=== PATIENT | male | born 1955 | race Caucasian/White ===

== ENCOUNTER 2022-02-21 06:04 | Day surgery (SDC) | payer BC ==
[2022-02-16 12:33] LABS: Absolute Lymphocytes (CBC) 2.4 K/uL (0.7-4.9); Hematocrit 48.6 % (39.6-49.0); Lymphocytes % 32.5 % (15.3-44.8); MPV 9.6 fL (7.6-11.3); RBC Red Blood Cell Count 5.31 M/uL (4.33-5.43)
--- NOTE | 2022-02-16 12:39 | RAD REPORT ---
EXAM DESCRIPTION: RAD - Chest Pa And Lat (2 Views) - 02/16/2022 12:22 pm CLINICAL HISTORY: preop COMPARISON: No comparisons FINDINGS: Lines: None. Lungs: No evidence of edema or pneumonia. Pleural: No significant pleural effusions or pneumothorax. Cardiac: The heart size is within normal limits. Bones: No acute fractures. Other: IMPRESSION: No acute cardiopulmonary disease.
--- NOTE | 2022-02-19 11:58 | EKG ---
Test Date: 2022-02-16 Test Time: 12:10:59 Bronze Plater: HENNA MEASUREMENT RESULTS: Intervals: Rate: 55 OR: 148 QRSD: 94 QT: 440 QTc: 420 [place]: P: 72 OR: 148 QRS: 31 T: 39 INTERPRETIVE STATEMENTS: Sinus bradycardia Otherwise normal ECG No previous ECG available for comparison Electronically Signed On 02-19-22 11:52:11 CDT by Adriel Ellis
[2022-02-21] MEDS ORDERED: Ringers Lactate 1,000 ML IV ONE ×2 (06:24→10:11)
[2022-02-21] MEDS ORDERED: CEFAZOLIN 2 GM IN 0.9% NACL 2 GM/100 ML BAG ONE (06:24)
[2022-02-21] MEDS ORDERED: dexAMETHasone 10 MG/ML VIAL ONE ×2 (06:33→07:22)
[2022-02-21] MEDS ORDERED: MIDAZOLAM HCL 2 MG/2 ML INJ ONE (06:33)
[2022-02-21] MEDS ORDERED: LIDOCAINE 1% MPF 5 ML VIAL ONE (06:33)
[2022-02-21] MEDS ORDERED: FENTANYL CITR 100 MCG/2 ML ONE (06:33)
[2022-02-21] MEDS ORDERED: ROPLVACAINE HCL 40 ML ONE (06:34)
[2022-02-21] MEDS ORDERED: SODIUM BICARB 50 MEQ/50ML VIAL ONE (06:34)
[2022-02-21] MEDS ORDERED: EPINEPHRINE/PF 1 MG/ML AMP ONE ×2 (06:34→07:15)
[2022-02-21] MEDS ORDERED: propofoL 200 MG/20 ML VIAL IV ONE (07:22)
[2022-02-21] MEDS ORDERED: KETOROLAC 30 MG/ML INJ ONE (07:22)
[2022-02-21] MEDS ORDERED: ONDANSETRON 4 MG/2 ML VIAL ONE (07:23)
[2022-02-21] MEDS ORDERED: LIDOCAINE 2% MPF 5 ML VIAL ONE (07:23)
[2022-02-21] MEDS ORDERED: ROCURONIUM 50 MG/5 ML VIAL IV ONE (07:34)
[2022-02-21] MEDS ORDERED: Phenylephrine HCl 10 MG/ML 1 ML VIAL ONE (09:27)
[2022-02-21] MEDS ORDERED: NS 0.9% VIAL 10 ML ONE (09:27)
--- NOTE | 2022-02-21 10:24 | P.BOP ---
Preoperative diagnosis: left rotator cuff tear, biceps tendinitis, impingement syndrome Postoperative diagnosis: same, SLAP tear Primary procedure: left shoulder arthroscopic rotator cuff repair Secondary procedure: left shoulder arthroscopic biceps tenotomy with SLAP debridement Other procedure(s): left shoulder arthroscopic subacromial decompression Personal Service Representative: NONE,NONE Estimated blood loss: per anesthesia record Specimen: none Findings: see dictation Anesthesia: General Complications: None Implants: 1- 5.5 mm arthrex corkscrew, 1- 4.75 mm Arthrex Swivelock Fluids & blood products: per anesthesia record Transferred to: Recovery Room Condition: Good
[2022-02-21] MEDS ORDERED: ALBUTEROL 2.5 MG/3 ML NEB SOL ONE (10:34)
[2022-02-21] MEDS ORDERED: ALBUTEROL INHALER 60 PUFF/8 GM IH ONE (10:36)
[2022-02-21] MEDS ORDERED: HYDROCODONE/APAP 7.5/325 MG TAB ONE (11:44)
--- NOTE | 2022-02-21 11:51 | RAD REPORT ---
EXAM DESCRIPTION: RAD - Shoulder 1 View - 02/21/2022 11:17 am CLINICAL HISTORY: Shoulder surgery FINDINGS: Frontal view of the shoulder was obtained. No fracture or dislocation is seen. Mild joint space narrowing involves the acromioclavicular joint.
[2022-02-21 13:02] VITALS: BP 139/61; TEMP 96.8; O2SAT 96
--- NOTE | 2022-02-21 17:25 | OP ---
Date of Procedure: 02/21/2022 Surgeon: Elier Fernandes MD Preoperative Diagnoses: 1.Left shoulder rotator cuff tear. 2.Left shoulder bicipital tenosynovitis. 3.Left shoulder impingement syndrome. Postoperative Diagnoses: 1.Left shoulder rotator cuff tear. 2.Left shoulder bicipital tenosynovitis. 3.Left shoulder impingement syndrome. 4.Left shoulder SLAP tear. Procedures Performed: 1.Left shoulder arthroscopic rotator cuff repair. 2.Left shoulder arthroscopic biceps tenotomy with SLAP debridement. 3.Left shoulder arthroscopic subacromial decompression. Anesthesia: General endotracheal. Fluids: Per Anesthesia record. Estimated Blood Loss: 5 cc. Complications: None. Implants: 1.One 5.5 mm Arthrex corkscrew. 2.One 4.75 mm Arthrex SwiveLock. Indication For Procedure: Eric is a 66-year-old male, who presented to my clinic with signs, sympt oms, and MRI findings consistent with a left shoulder rotator cuff tear, bicipital tenosynovitis and impingement syndrome. I discussed with the patient at length risks and benefits associated with oper ative and nonoperative treatment. He expressed understanding and elected to proceed with operative t reatment. Description Of Procedure: After informed consent was obtained, the patient was identified in the pre operative holding area. The left upper extremity was marked. The patient was then taken to the PACU where he underwent an interscalene block to his left upper extremity performed by Anesthesia. He wa s then brought to operating room, transferred to the operating table in supine fashion and placed on the beach chair position with extremities well-padded. The left upper extremity was then prepped and draped in usual sterile fashion. A time-out was initiated. Correct patient and procedure were conf irmed and identified. The patient did receive his preoperative prophylactic antibiotics via the post erior portal. A spinal needle was introduced into the glenohumeral joint and the shoulder was inject ed with 30 cc of normal saline to distend the capsule. Posterior portals were created and the arthro scope was brought in via the posterior portal position and diagnostic arthroscopy was performed. The patient was noted to have some hyperemia of his capsule as well as a type 1 SLAP tear. Anterior por valery and cannula were placed under direct visualization. The patient was noted to have significant hy peremia of his biceps tendon and anchor as well as extra-articular portion of the biceps tendon. Wit h this finding as well as a type 1 SLAP tear, we proceeded with the biceps tenotomy using meniscal bi ters. The labrum was found to be stable to probe. There were no loose bodies within the axillary po uch. The subscapularis was found to be intact and stable to probe. There were mild grade 1-2 chondr omalacia changes at the humeral head and glenoid surface. Arthroscope was brought to the articular s urface of the supraspinatus where there was noted to be some fraying anteriorly. A lateral portal wa s created and an obturator was brought into the joint consistent with a full-thickness tear of the un dersurface of the rotator. The anterior supraspinatus was then debrided using arthroscopic shaver. There was noted to be a full-thickness tear. The footprint was then debrided using an arthroscopic s haver to create a bleeding bony bed. The arthroscope was then brought to the subacromial space and a subacromial bursectomy was performed where significant bursitis noted. The rotator cuff tear was th en identified on the bursal side. The undersurface of the acromion was debrided using an arthroscopi c shaver and radiofrequency ablator. A stab incision was made just lateral to the acromion and a sin gle 5.5 mm double-loaded anchor was placed just lateral to the articular surface. The suture was the n passed through the rotator cuff tear in an anterior posterior fashion and medial row fixation was p erformed using a horizontal mattress fashion. The sutures were then brought laterally to further red uce and fix the rotator cuff tendon and a single 4.75 mm Arthrex corkscrew was placed for lateral row fixation. There was good overall reduction of the rotator cuff onto the supraspinatus footprint on the greater tuberosity. The remaining sutures were then cut. Next, attention was taken to the subac romial decompression. There was some fraying of the undersurface of the coracoacromial ligament and the undersurface of the acromion was then debrided using arthroscopic shaver and radiofrequency ablat or and acromioplasty was performed to complete the subacromial decompression. Arthroscopic instrumen ts were then removed without complications. Wounds were then irrigated thoroughly with normal saline . Subcutaneous tissues approximated using 2-0 Vicryl. Skin and portals were approximated using 4-0 Monocryl. Sterile dressings were applied. The patient was placed in a shoulder immobilizer, awakene d, and transferred to PACU in stable condition. Postoperative Plan: The patient will be nonweightbearing of his left upper extremity and will remain in the shoulder immobilizer and will follow up next week for wound check. He will follow the medium rotator cuff repair protocol at 4 weeks postop. POPEYE/RANJITH Voice ID: [id number] Report ID: [id number]
== END 2022-02-21 11:58 | disposition home or self-care (01) ==
LOC: OR 06:04
PROVIDERS: ATTEND Orthopaedic Surgery Sports Medicine
PROC: 0RNK4ZZ Release Left Shoulder Joint, Percutaneous Endoscopic Approach (ICD-10-PCS; 2022-02-21)
PROC: 0RBK4ZZ Excision of Left Shoulder Joint, Percutaneous Endoscopic Approach (ICD-10-PCS; 2022-02-21)
PROC: 0LM24ZZ Reattachment of Left Shoulder Tendon, Percutaneous Endoscopic Approach (ICD-10-PCS; principal; 2022-02-21 08:00)
DX: M75.122 Complete rotator cuff tear or rupture of left shoulder, not specified as traumatic (principal); M75.42 Impingement syndrome of left shoulder; Z20.822 Contact with and (suspected) exposure to COVID-19
CPT/HCPCS: 93005; 85025; 80048; 36415; 85610; 85730; 71046; 29827; 29826; 29822; U0002; 73020; J0171; J0690; J1100; J2250; J2370; J2405; J2704; J2795; J3010; J7120

== ENCOUNTER 2024-08-21 09:25 | Day surgery (SDC) | payer OTHER ==
[2024-08-18 10:40] LABS: Absolute Basophils 0.1 K/uL (0-0.5); Absolute Eosinophils 0.3 K/uL (0-0.5); Absolute Lymphocytes (CBC) 2.5 K/uL (0.7-4.9); Absolute Monocytes 0.6 K/uL (0.1-1.3); Absolute Neutrophil 4.1 K/uL (1.8-8.0); Basophils % 1.5 % (0-1.3); Eosinophils % 3.5 % (0-4.4); Hematocrit 44.5 % (39.6-49.0); Lymphocytes % 33.2 % (15.3-44.8); MCH 31.6 pg (27.0-35.0); MCHC 33.7 g/dL (32.0-36.0); MCV 93.8 fL (80-100); MPV 9.3 fL (7.6-11.3); Monocytes % 7.9 % (3.3-12.3); Neutrophils % 53.9 % (41.7-73.7); Platelets 232 thou/uL (152-406); RBC Red Blood Cell Count 4.74 M/uL (4.33-5.43); Red Cell Distribution Width 13.1 % (12.1-15.2)
[2024-08-18 10:51] LABS: PT Prothrombin Time 11.6 SECONDS (9.4-12.5); PTT, Activated Partial Thromb 38.5 SECONDS (24.3-36.9); Protime INR 1.04
--- NOTE | 2024-08-18 11:56 | EKG ---
Test Date: 2024-08-18 Test Time: 11:21:49 Director Of Student Services: KENNEDI MEASUREMENT RESULTS: Intervals: Rate: 69 ME: 148 QRSD: 90 QT: 398 QTc: 426 [place]: P: 77 ME: 148 QRS: 55 T: 65 INTERPRETIVE STATEMENTS: Normal sinus rhythm Normal ECG Compared to ECG 02/16/2022 12:10:59 Sinus bradycardia no longer present Electronically Signed On 08-18-24 11:55:20 ELECTRIC FORK OPERATOR by Buddy Levi
[2024-08-21] MEDS ORDERED: dexAMETHasone 10 MG/ML VIAL ONE ×2 (09:31→11:37)
[2024-08-21] MEDS ORDERED: LIDOCAINE 1% MPF 5 ML VIAL ONE (09:31)
[2024-08-21] MEDS ORDERED: MIDAZOLAM HCL 2 MG/2 ML INJ ONE ×2 (09:32→12:05)
[2024-08-21] MEDS ORDERED: BUPIVACAINE 0.5% PF 10 ML VIAL ONE (09:32)
[2024-08-21] MEDS ORDERED: FENTANYL CITR 100 MCG/2 ML ONE (09:32)
[2024-08-21] MEDS ORDERED: EPINEPHRINE 1 MG/ML VIAL ONE (09:32)
[2024-08-21] MEDS ORDERED: NA CHLORIDE 0.9% 1,000 ML ONE (09:46)
[2024-08-21] MEDS ORDERED: propofoL 200 MG/20 ML VIAL IV ONE (11:37)
[2024-08-21] MEDS ORDERED: ONDANSETRON 4 MG/2 ML VIAL ONE (11:37)
[2024-08-21] MEDS ORDERED: ROCURONIUM 50 MG/5 ML VIAL IV ONE (11:37)
[2024-08-21] MEDS ORDERED: KETOROLAC 30 MG/ML INJ ONE (11:37)
[2024-08-21] MEDS ORDERED: LIDOCAINE 2% MPF 5 ML VIAL ONE (11:37)
[2024-08-21] MEDS ORDERED: SUCCINYLCHOLINE 20 MG/ML (10 ML) IV ONE (11:49)
[2024-08-21] MEDS: CEFAZOLIN SODIUM 2 GM/VIAL ONE (12:25)
[2024-08-21] MEDS: EPINEPHRINE 1 MG/ML VIAL ONE (13:06)
[2024-08-21] MEDS: NA CHLORIDE 0.9% 1,000 ML ONE (13:40)
--- NOTE | 2024-08-21 13:53 | P.BOP ---
Preoperative diagnosis: Right shoulder rotator cuff tear, impingement syndrome, biceps tendinitis Postoperative diagnosis: Same Primary procedure: Right shoulder arthroscopic rotator cuff repair, Secondary procedure: Right shoulder arthroscopic biceps tenotomy with SLAP tear debridement Other procedure(s): Right shoulder arthroscopic subacromial decompression Bevel Mill Operator: NONE,NONE Estimated blood loss: 10 cc Findings: See dictation Anesthesia: General Complications: None Implants: 1-4.75 mm Arthrex swivel lock Fluids & blood products: Per anesthesia record Transferred to: Recovery Room Condition: Good
--- NOTE | 2024-08-21 13:54 | P.OP ---
Preoperative diagnosis: Right shoulder rotator cuff tear, biceps tendinitis, impingement syndrome Postoperative diagnosis: Same, right shoulder SLAP tear Primary procedure: Right shoulder arthroscopic rotator cuff repair, Secondary procedure: Right shoulder arthroscopic biceps tenotomy with SLAP tear debridement Other procedure(s): Right shoulder arthroscopic subacromial decompression Anesthesia: General Estimated blood loss: 10 cc Specimen: None Findings: See dictation Operative Technique: Indication For Procedure: Eric is a 68-year-old male who presented to my clinic with signs, symptoms, and MRI findings consistent with a right shoulder full-thickness rotator cuff tear. I discussed with the patient risks and benefits associated with operative and nonoperative treatment. He expressed understanding and elected to proceed with operative treatment. Description Of Procedure: After informed consent was obtained, the patient was identified in the preoperative holding area. The right upper extremity was marked. The patient then was brought to the PACU where he underwent a right- sided interscalene block performed by Anesthesia. The patient was brought back to the operating room, transferred to the operative table in supine fashion, placed under general endotracheal anesthesia. He was then placed in a beach ch air position with his extremities well padded. The right upper extremity was then prepped and draped in usual sterile fashion. A time-out was initiated. The correct patient and procedure were performed and identified. The patient did receive preoperative prophylactic antibiotics. Via the posterior portal position, a spinal needle was introduced in the glenohumeral joint and the shoulder was injected with 30 cc of normal saline to distend the capsule. A stab incision was made posteriorly and a posterior portal was created. Arthroscope was brought in via the posterior portal position and diagnostic arthroscopy was performed. Under direct visualization, an anterior portal and cannula were created. The patient was noted to have a type 1 SLAP tear, which was debrided using the arthroscopic shaver. There were no significant instability of the superior labrum or anterior posterior labrum, which were stable to probe. There was fraying and tenosynovitis of the bicipital tendon both intra-articular and extra-articular. A biceps tenotomy was performed using a meniscal biter. The anchor was then debrided using the arthroscopic shaver. Subscapularis was found to to have a partial-thickness tear over the superior border which was debrided using an arthroscopic shaver. The remaining tendon was stable and intact to probe. There were no loose bodies within the axillary pouch. The patient was noted to have a full-thickness tear of the anterior aspect of the supraspinatus. A lateral portal was created and an arthroscopic shaver was then used to debride the greater tuberosity. The rotator cuff tear was noted to reduce to the greater tuberosity. Greater tuberosity was debrided using the arthroscopic shaver to create a bleeding bony bed. The undersurface of the rotator cuff tear was also debrided using the arthroscopic shaver to remove any unhealthy tissue. The arthroscope was then brought in the subacromial space. A subacromial bursectomy was performed using arthroscopic shaver. The patient was noted to have a full-thickness tear of the supraspinatus, without retraction. The rotator cuff tear was small and without retraction and was repaired using a speed fix configuration. A fiber tape suture was then passed through the rotator cuff tear in an inverted horizontal mattress type fashion. The 2 limbs were then brought out to a swivel lock laterally over the greater tuberosity with fixation with overall good reduction of the tendon on the greater tuberosity. The remaining suture limbs were cut. There was some significant fraying of a coracoacromial ligament as well as some undersurface spurring of the acromion and acromioplasty was performed using a radiofrequency ablator and an arthroscopic bur. Arthroscopic instruments were then removed without complication. Wounds were then irrigated thoroughly with normal saline. Subcutaneous tissue was approximated using a 2-0 Vicryl. Portals were approximated using a 3-0 Monocryl. Sterile dressings were applied. Shoulder immobilizer was placed. The patient was awakened and transferred to PACU in stable condition. Postoperative Plan: The patient will be nonweightbearing in a shoulder immo bilizer for 6 weeks. We will follow the medium rotator cuff repair protocol 4 weeks postoperatively. Complications: None Implants: 1-4.75 mm Arthrex swivel lock Fluids & blood products: Per anesthesia record Transferred to: Recovery Room Condition: Good
[2024-08-21 14:39] VITALS: O2SAT 98
[2024-08-21 15:52] VITALS: BP 128/86; TEMP 97.1
--- NOTE | 2024-08-21 16:07 | RAD REPORT ---
EXAMINATION: XR RIGHT SHOUDLER CLINICAL INDICATION: Male, 68 years old. S/P R ROTATOR CUFF REPAIR RIGHT TECHNIQUE: Single view radiograph of the right shoulder was obtained. COMPARISON: No prior exam. FINDINGS: No bone or joint abnormality detected. IMPRESSION: No acute or significant abnormalities.
== END 2024-08-21 15:45 | disposition home or self-care (01) ==
LOC: OR 09:25
PROVIDERS: ATTEND Orthopaedic Surgery Sports Medicine
PROC: 0LM14ZZ Reattachment of Right Shoulder Tendon, Percutaneous Endoscopic Approach (ICD-10-PCS; 2024-08-21)
PROC: 0RNJ4ZZ Release Right Shoulder Joint, Percutaneous Endoscopic Approach (ICD-10-PCS; principal; 2024-08-21 12:15)
DX: M75.121 Complete rotator cuff tear or rupture of right shoulder, not specified as traumatic (principal); S43.431A Superior glenoid labrum lesion of right shoulder, initial encounter; M75.21 Bicipital tendinitis, right shoulder; M75.41 Impingement syndrome of right shoulder
CPT/HCPCS: 29827; 29826; 29822; 93005; 85025; 36415; 85610; 82947 ×2; 85730; 73020; J2704; J2003 ×2; J2250 ×2; J3010; J1100 ×2; J0171 ×2; J2405; J7030 ×2